=== PATIENT | male | born 1955 | race African-American/Black ===

== ENCOUNTER 2019-05-10 19:38 | Emergency (ER) | payer SELFPAY ==
[~2019-05-10] VITALS: Ht 175.3 cm; Wt 73.0 kg
[2019-05-10] MEDS ORDERED: SODIUM CHLORIDE 0.9% 1,000 ML IV ONE (20:45)
[2019-05-10] MEDS ORDERED: ACETAMINOPHEN 500MG TABLET PO ONE (21:30)
[2019-05-10] MEDS ORDERED: IBUPROFEN 600MG TABLET PO ONE (21:30)
[2019-05-10 23:30] VITALS: BP 108/65
== END 2019-05-10 23:38 | disposition home or self-care (01) ==
LOC: ER 19:38
DX: F10.129 Alcohol abuse with intoxication, unspecified (principal); Y90.9 Presence of alcohol in blood, level not specified; Z86.718 Personal history of other venous thrombosis and embolism
CPT/HCPCS: 99283; J7030